=== PATIENT | male | born 1955 | race Caucasian/White ===

== ENCOUNTER 2017-02-21 17:29 | Emergency (ER) | payer OTHER, BC ==
[~2017-02-21] VITALS: Ht 193 cm; Wt 129.9 kg
[~2017-02-21 17:29] MED LIST: ADVIL,NUPRIN,M200 MG PO; AMBIEN; CALAN40 MG PO; CELEXA10 MG PO; CELEXA40 MG PO; ENDOCET 5-3251 EACH PO; FLEXERIL10 MG PO; IMITREX25 MG PO; IMITREX50 MG PO; LIDODERM 5% P1 PATCH TD; MEDROL DOSEPAK4 MG PO; NAPROSYN500 MG PO; PERCOCET 5/31 TABLET PO; PERCOCET 7.51 TABLET PO; PREDNISONE20 MG PO; PREDNISONE50 MG PO; ULTRAM50 MG PO; VALIUM5 MG PO; VERAPAMIL; VERAPAMIL HCL360 MG PO
[2017-02-21 18:33] LABS: BASOPHIL COUNT 0.1 K/uL (0-0.1); EOSINOPHIL (%) 2.5 % (0-5); EOSINOPHIL COUNT 0.2 K/uL (0-0.3); HEMATOCRIT 39.8 % (38.0-50.0); IMMATURE GRANULOCYTE (%) 0.3 % (0.0-0.7); INSTRUMENT ABS NEUTROPHIL CT 5.6 K/uL; LYMPHOCYTE COUNT 2.6 K/uL (1.0-2.8); MCH 32.1 PG (29.0-34.0); MCHC 35.7 G/DL (30.0-36.0); MCV 89.8 FL (86-99); MEAN PLAT.VOLUME 10.5 uM^3 (9.0-12.4); MONOCYTE (%) 9.6 % (3-12); MONOCYTE COUNT 0.9 K/uL (0-0.8); NEUTROPHIL (%) 59.4 % (45-76); NEUTROPHIL COUNT 5.6 K/uL (1.8-6.4); PLATELET COUNT 186 K/uL (156-360); RBC DIS.WIDTH-CV 11.9 % (11.8-14.6); RBC DIS.WIDTH-SD 39.1 % (39-53); RED BLOOD COUNT 4.43 M/uL (4.00-5.50); WHITE BLOOD COUNT 9.5 K/uL (4.1-10.2)
[2017-02-21 18:44] LABS: CHLORIDE 108 mEq/L (99-109); POTASSIUM 4.6 mEq/L (3.7-5.4); SODIUM 141 mEq/L (136-147)
[2017-02-21 18:46] LABS: GLUCOSE 95 mg/dL (70-99)
[2017-02-21 18:48] LABS: ANION GAP 9 MEQ/L (2-14)
[2017-02-21 18:49] LABS: TOTAL BILIRUBIN 0.3 mg/dL (0.0-1.0)
[2017-02-21 18:50] LABS: ALKALINE PHOSPHATASE 114 IU/L (3-129); GFR ESTIMATE (CALCULATED) > 59 mL/min/
[2017-02-21 18:51] LABS: UREA NITROGEN (BUN) 17 mg/dL (9-23)
[2017-02-21 19:01] LABS: ADD MIUA? NO; BILIRUBIN NEGATIVE; BLOOD NEGATIVE; COLOR YELLOW ((YELLOW)); GLUCOSE (STRIP) NEGATIVE; KETONES NEGATIVE; LEUKOCYTES NEGATIVE; NITRITE NEGATIVE; PROTEIN (STRIP) NEGATIVE; SPECIFIC GRAVITY 1.016 (1.000-1.030); UCUL ADDED? NO; UROBILINOGEN 0.2 MG/DL (0.2-1.0)
[2017-02-21] MEDS ORDERED: NAPROSYN500 MG PO (21:15)
[2017-02-21] MEDS ORDERED: LORTAB 5-325 M1 EACH PO (21:15)
[2017-02-21 21:26] VITALS: BP 113/77
== END 2017-02-21 21:27 | disposition home or self-care (01) ==
LOC: EME 17:29
PROVIDERS: Physician Assistant Medical
DX: K63.89 Other specified diseases of intestine (principal); R10.32 Left lower quadrant pain; R19.7 Diarrhea, unspecified; R06.02 Shortness of breath
CPT/HCPCS: 74177; 80053; 81003; 85025; 99281; 99285; J2270; J2405; J7040